=== PATIENT | male | born 1965 | race Caucasian/White ===

== ENCOUNTER 2018-02-18 03:45 | Emergency (ER) | payer OTHER ==
[2018-02-18] MEDS ORDERED: LIDOCAINE 1% INJ-PF (10 MG/ML) 30 ML SDV INJ ONE (04:02)
--- NOTE | 2018-02-18 04:07 | ER Document Report ---
ED General - General Stated Complaint: FALL LEG LACERATION Time Seen by Provider: 02/18/18 03:54 Notes: Patient is a 52-year-old male comes by EMS for chief complaint of laceration to his right leg. Patient states he drank 8 beers tonight, states that he accidentally hit his leg on a step causing a gash and bleeding. He denies falling, hitting his head, he denies any other areas of injury. EMS reports that per report on scene he did not have any other injuries. Patient is vaccinated within 5 years. He is not on a blood thinner, he is not a diabetic. Past Medical History - General Information source: Patient, Emergency Med Personnel - Social History Smoking Status: Former Smoker Frequency of alcohol use: Occasional Drug Abuse: None Lives with: Alone Family History: Reviewed & Not Pertinent - Past Medical History Cardiac Medical History: Reports: Hx Hypercholesterolemia, Hx Hypertension - Immunizations Immunizations up to date: Yes Hx Diphtheria, Pertussis, Tetanus Vaccination: Yes Review of Systems - Review of Systems Constitutional: No symptoms reported EENT: No symptoms reported Cardiovascular: No symptoms reported Respiratory: No symptoms reported Gastrointestinal: No symptoms reported Genitourinary: No symptoms reported Male Genitourinary: No symptoms reported Musculoskeletal: See HPI Skin: See HPI Hematologic/Lymphatic: No symptoms reported Neurological/Psychological: See HPI Physical Exam - Vital signs Interpretation: Normal - General General appearance: Appears well In distress: None - Patient smiling, laughing, talkative, appears mildly intoxicated but does not appear to be in distress - HEENT Head: Normocephalic, Atraumatic Eyes: Normal Pupils: PERRL - Respiratory Respiratory status: No respiratory distress Chest status: Nontender Breath sounds: Normal Chest palpation: Normal - Cardiovascular Rhythm: Regular Heart sounds: Normal auscultation Murmur: No - Abdominal Inspection: Normal Distension: No distension Bowel sounds: Normal Tenderness: Nontender Organomegaly: No organomegaly - Back Back: Normal, Nontender - Extremities General upper extremity: Normal inspection, Nontender, Normal color, Normal ROM , Normal temperature General lower extremity: Other - Right proximal tibia with a irregular horizontal laceration about 3 cm in length, mild soft tissue swelling around this, normal hip, knee, ankle, distal neurovascular exam. Normal lower extremity exam otherwise. - Neurological Neuro grossly intact: Yes Cognition: Normal Orientation: AAOx4 [place] Coma Scale Eye Opening: Spontaneous [place] Coma Scale Verbal: Oriented [place] Coma Scale Motor: Obeys Commands [place] Coma Scale Total: 15 Speech: Normal Motor strength normal: LUE, RUE, LLE, RLE Additional motor exam normals: Equal housing relocation Sensory: Normal - Psychological Associated symptoms: No: Normal mood - Expansive mood - Skin Skin Temperature: Warm Skin Moisture: Dry Skin Color: Normal Course - Re-evaluation Re-evalutation: No injuries except for the right lower leg. X-rays unremarkable. Wound repaired. Patient has a ride home. Discussed wound care, follow-up, return precautions. Patient states understanding and agreement. Procedures - Laceration/Wound Repair Right proximal tibia Wound length (cm): 3 Wound's Depth, Shape: Irregular Laceration pre-procedure: Sterile PPE donned, Sterile drapes applied, Shur- Clens applied Anesthetic type: 1% Lidocaine Volume Anesthetic (mLs): 5 Wound explored: Clean, No foreign body removed Irrigated w/ Saline (mLs): 60 Wound Repaired With: Sutures Suture Size/Type: 3:0, Nylon Number of Sutures: 5 Layer Closure?: No Post-procedure wound care: Sterile dressing applied Post-procedure NV exam normal: Yes Complications: No Discharge - Discharge Clinical Impression: Leg laceration Qualifiers: Encounter type: initial encounter Laterality: right Qualified Code(s): S81.811A - Laceration without foreign body, right lower leg, initial encounter Contusion of leg, right Qualifiers: Encounter type: initial encounter Qualified Code(s): S80.11XA - Contusion of right lower leg, initial encounter Condition: Stable Disposition: HOME, SELF-CARE Additional Instructions: The x-ray of the leg is normal. The sutures need to come out in about 7 days at a medical facility.. Keep area clean with soap and water, keep dressed with topical antibiotic such as bacitracin or triple antibiotic ointment. Take ibuprofen if needed for bruising/pain/swelling. Return for any concerning symptoms including developing redness, discolored discharge, severe swelling/ pain, or any other concerning symptoms.
--- NOTE | 2018-02-18 04:37 | RADIOLOGY REPORT (SQ) ---
EXAM DESCRIPTION: XR TIBIA FIBULA 2 VIEWS CLINICAL HISTORY: 52 years Male, fall, injury, pain COMPARISON: None. Findings: Bones, joints, and soft tissues of the right XR TIBIA FIBULA 2 VIEWS appear intact. IMPRESSION: No acute findings.
== END 2018-02-18 05:31 | disposition home or self-care (01) ==
LOC: ER 03:45
PROC: 0HQKXZZ Repair Right Lower Leg Skin, External Approach (ICD-10-PCS; principal; 2018-02-18)
DX: S81.811A Laceration without foreign body, right lower leg, initial encounter (principal); S80.11XA Contusion of right lower leg, initial encounter; W22.8XXA Striking against or struck by other objects, initial encounter; Z87.891 Personal history of nicotine dependence; I10 Essential (primary) hypertension
CPT/HCPCS: 99284

== ENCOUNTER 2019-06-23 05:01 | Emergency (ER) | payer OTHER ==
[2019-06-23] MEDS ORDERED: TETRACAINE HCL 0.5% OPH SOLN 4 ML OS ONE (06:59)
[2019-06-23] MEDS ORDERED: IBUPROFEN 800 MG TABLET PO ONE (07:25)
--- NOTE | 2019-06-23 07:27 | ER Document Report ---
ED Eye Complaint - General Chief Complaint: Eye Pain Stated Complaint: LEFT EYE PAIN Time Seen by Provider: 06/23/19 06:29 Primary Care Provider: FERNANDO NEFF MD [Primary Care Provider] - Follow up as needed Notes: Is a 54-year-old male who presents the emergency department with left eye pain. He states that yesterday his dog had pushed on his eyeglasses which then scraped his eye. He states that he feels like there is something in his eye. He feels that his eye is swollen. He has not taken anything to help with the pain. TRAVEL OUTSIDE OF THE [place] IN LAST 30 DAYS: No Past Medical History - General Information source: Patient - Social History Smoking Status: Unknown if Ever Smoked Family History: Reviewed & Not Pertinent Patient has suicidal ideation: No Patient has homicidal ideation: No - Past Medical History Cardiac Medical History: Reports: Hx Hypercholesterolemia, Hx Hypertension Renal/ Medical History: Denies: Hx Peritoneal Dialysis - Immunizations Immunizations up to date: Yes Hx Diphtheria, Pertussis, Tetanus Vaccination: Yes Review of Systems - Review of Systems Notes: REVIEW OF SYSTEMS: CONSTITUTIONAL : Denies recent illness. Denies recent unintentional weight loss. Denies fever, chills, or sweats. EENT: See HPI. CARDIOVASCULAR: Denies chest pain. RESPIRATORY: Denies shortness of breath, cough, congestion, difficulty breathing, or wheezing. GASTROINTESTINAL: Denies nausea, vomiting, and diarrhea. Denies abdominal pain. Denies constipation. GENITOURINARY: Denies difficulty urinating, burning, blood in urine, urgency or frequency. MUSCULOSKELETAL: Denies neck and back pain. Denies joint pain or swelling. SKIN: Denies rash, itchiness, or lesions HEMATOLOGIC : Denies easy bruising or bleeding. LYMPHATIC: Denies swollen, painful, enlarged glands. NEUROLOGICAL: Denies no numbness or tingling denies weakness. Denies headache. Denies altered mental status. Denies alteration in speech. PSYCHIATRIC: Denies stress, anxiety, alteration in sleep patterns, or depression. All other systems reviewed and negative. Physical Exam - Vital signs Vitals: Temp Pulse Resp BP Pulse Ox 97.7 F 80 16 137/100 H 97 06/23/19 05:01 06/23/19 05:01 06/23/19 05:01 06/23/19 05:01 06/23/19 05:01 - Notes Notes: PHYSICAL EXAMINATION: GENERAL: Appears well, healthy, well-nourished, no acute distress. HEAD: Normocephalic, atraumatic. EYES: PERRL, all extraocular movements intact, sclera nonicteric ENT: Moist mucous membranes. NECK: Supple, no noticeable swelling, redness, rash. Normal range of motion. LUNGS: Equal breath sounds bilaterally and clear to auscultation. No wheezes rales or rhonchi. CARDIOVASCULAR: S1-S2, regular rate, regular rhythm. Radial pulses 2+, normal. ABDOMEN: Normoactive bowel sounds. Soft, nontender, no guarding, no rebound tenderness, and no masses palpated. EXTREMITIES: Normal strength and range of motion, no pitting or edema. No cyanosis. NEUROLOGICAL: Moves all extremities upon command. Strength 5/5 in all extremities. PSYCH: Normal mood, normal affect. SKIN: Warm, dry. No rash, lesions, ulcerations noted. Normal skin turgor. - HEENT Visual acuity- Right eye: 20/40 Visual acuity- Left eye: 20/200 Visual acuity- Both eyes: 20/25 Corrective lenses worn: Yes - pt appointment at end of the month Course - Re-evaluation Re-evalutation: 06/23/19 07:40 Patient's eye exam shows that he has a corneal abrasion anterior to his pupil. Very low suspicion for a globe rupture. Negative Yesenia sign. Patient will be started on Polytrim eyedrops. 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 Follow-up precautions were given. Verbal discharge instructions were given to the patient. They verbalized understanding. They are stable for discharge. - Vital Signs Vital signs: Temp Pulse Resp BP Pulse Ox 98 F 78 16 128/90 H 98 06/23/19 08:00 06/23/19 08:00 06/23/19 08:00 06/23/19 08:00 06/23/19 08:00 Discharge - Discharge Clinical Impression: Corneal abrasion Qualifiers: Encounter type: initial encounter Laterality: left Qualified Code(s): S05.02XA - Injury of conjunctiva and corneal abrasion without foreign body, left eye, initial encounter Condition: Stable Disposition: HOME, SELF-CARE Instructions: Corneal Abrasion ([facility]) Additional Instructions: You have a corneal abrasion. This should improve in the next several days. You should apply the eye drops to the affected eye 4 times daily. Follow-up with your frozen food department manager in [place] at your earliest ability. You are also being sent home with Acular eyedrops. You can use them as directed. Return if you have decreased vision, worsening pain, increased drainage from the eye, you notice redness or puffiness around the eye, you develop a fever greater than 101F, or you have any other symptoms that are concerning to you. Prescriptions: Ketorolac Tromethamine [Acular Ls] 1 drop OS TIDP PRN #5 ml PRN Reason: Referrals: FERNANDO NEFF MD [Primary Care Provider] - Follow up as needed
[2019-06-23] MEDS ORDERED: POLYMYXIN B SULFATE/TMP OPH SOLN (10 ML/ER DISP) OS PRN (07:44)
[2019-06-23 08:41] VITALS: BP 128/90
== END 2019-06-23 08:00 | disposition home or self-care (01) ==
LOC: ER 05:01
DX: S05.02XA Injury of conjunctiva and corneal abrasion without foreign body, left eye, initial encounter (principal); W20.8XXA Other cause of strike by thrown, projected or falling object, initial encounter; I10 Essential (primary) hypertension
CPT/HCPCS: 99283; J3490 ×2